=== PATIENT | male | born 1955 | race Caucasian/White ===

== ENCOUNTER → 2019-06-27 | Outpatient (CLI) | payer OTHER ==
[~2019-06-27] VITALS: Ht 172.7 cm; Wt 81.6 kg
[~2019-06-27] MED LIST: BENADRYL25 MG PO; CHLORTABS4 MG PO; IBUPROFEN 200200 M1 PO
--- NOTE | 2019-06-29 19:06 | PATH ---
[facility] [address] [place] [address] PATHOLOGY RPT PROCEDURE Name: BRANDON CORREIA Room #: REG CLI Bryan.#: [id number] ������������������ Admission: 06/27/19 ������������������ Date of : 51 Discharge: Report #: [id number] Path Case #: [id number] [facility] Accession Number: [id number] . 01 Material submitted: . colon - TRANSVERSE POLYP. Modifiers: transverse . 01 Clinical history: . Preop DX: Screening Postop DX: Transverse polyp . 02 Diagnosis: Polyp, transverse polyp, endoscopic biopsy: - Tubular adenoma. - Negative for high-grade dysplasia. (IUV:pit; 06/29/2019) QTP 06/29/2019 1311 Local . 02 Electronically signed: . Rosio Velazquez MD, Pathologist NPI- [id number] . 01 Gross description: . Received in formalin labeled "Josefina, Brandon, transverse polyp," are three segments of pierce-brown soft tissue measuring 0.5 x 0.4 x 0.2 cm in aggregate dimensions and ranging from 0.2 to 0.5 cm in maximum dimension. The specimen is submitted entirely in cassette A1. (DAC; 06/28/2019) XDC/XDC 06/28/2019 0900 Local . 02 Pathologist provided ICD-10: D12.3, Z12.11 . 02 CPT . 314726 Specimen Comment: A courtesy copy of this report has been sent to Specimen Comment: [phone]. Specimen Comment: Report sent to DR WELCH Performed at: [address], [place], [place] [id number] MD Celestine Agudelo MD Phone: [phone] Performed at: [address] [id number] MD Rosio Velazquez MD Phone: [phone]
== END | disposition home or self-care (01) ==
LOC: GI 09:38
DX: Z12.11 Encounter for screening for malignant neoplasm of colon (principal); D12.3 Benign neoplasm of transverse colon; K57.30 Diverticulosis of large intestine without perforation or abscess without bleeding; K64.8 Other hemorrhoids; Z85.46 Personal history of malignant neoplasm of prostate; Z98.890 Other specified postprocedural states
CPT/HCPCS: 62110; 62900